=== PATIENT | male | born 1995 | race Caucasian/White ===

== ENCOUNTER 2019-08-12 09:37 | Day surgery (SDC) | payer OTHER ==
[~2019-08-12 09:37] MED LIST: LIDOCAINE 2% INJ-PF (100 MG/5 ML) SYRINGE ONE; PROPOFOL INJ 200 MG/20 ML VIAL IV ONE
[2019-08-12 11:38] VITALS: BP 123/60
--- NOTE | 2019-08-12 12:05 | Operative Report ---
Operative Report DATE OF SURGERY: 08/12/19 Operative Report: The risks, benefits and alternatives of the procedure including the risk of bleeding, perforation requiring surgery have been explained to the patient in detail and informed consent has been obtained. The patient is placed in a left, lateral decubital position. Timeout was called. Propofol medication is administered. Rectal examination is done which did not reveal any masses, tears or fissures. An Olympus videoscope was introduced into the patient's rectum. The scope was then carefully advanced all the way to the cecum. The cecum was identified by the usual anatomical landmarks including the ileocecal valve as well as the appendiceal office. Photodocumentation is obtained. Scope was then sequentially pulled back via the various segments of the colon including the ascending colon, hepatic flexure, transverse colon, splenic flexure, descending colon finding to the rectosigmoid portions of the colon. Retroflexion maneuvers performed. The risks benefits and alternatives of the procedure explained to the patient in detail and informed consent is obtained.A GIF Olympus video scope was inserted into the patient's mouth and hypopharynx, the esophagus is identified intubated and insufflated, the scope was then advanced through the esophagus stomach and duodenum., retroflexion maneuver is done, the esophagus stomach and first and second portions of the duodenum examined. PREOPERATIVE DIAGNOSIS: Change in bowel habits, gastroesophageal reflux disease POSTOPERATIVE DIAGNOSIS: Terminal ileitis status post biopsy. Gastritis status post biopsy for Helicobacter pylori. Esophagitis versus Ball's status post biopsy OPERATION: Colonoscopy with biopsy. EGD with biopsy SURGEON: RANDALL BENSON ANESTHESIA: LMAC TISSUE REMOVED OR ALTERED: As noted above. COMPLICATIONS: None. ESTIMATED BLOOD LOSS: None. INTRAOPERATIVE FINDINGS: As noted above. PROCEDURE: Patient tolerated the procedure well. No immediate postprocedure complications are noted. Patient is discharged in good condition. Discharge date 08/12/2019. Discharge diet: Regular. Discharge activity: Regular. 2 to 3-week follow-up to discuss findings. Patient is instructed to call the office or proceed to the emergency room should there be any further questions. Wait on the pathology.
== END 2019-08-12 11:37 | disposition home or self-care (01) ==
LOC: END 09:37
PROVIDERS: ATTEND Internal Medicine Gastroenterology
DX: K29.50 Unspecified chronic gastritis without bleeding (principal); K52.9 Noninfective gastroenteritis and colitis, unspecified; K21.0 Gastro-esophageal reflux disease with esophagitis; E78.5 Hyperlipidemia, unspecified
CPT/HCPCS: 43239; 45380; 88342 ×2; 88305 ×2; 00813; J2001; J2704 ×2; 813